=== PATIENT | male | born 1945 | race Caucasian/White ===

== ENCOUNTER 2017-07-10 03:41 | Emergency (ER) | payer MEDICARE, OTHER ==
[2017-07-10] MEDS ORDERED: LIDOCAINE 2%/EPINEPHRINE INJ 20 ML VIAL INJ ONE (04:16)
[2017-07-10] MEDS ORDERED: LIDOCAINE 1%/EPINEPHRINE INJ 20 ML VIAL INJ ONE (04:24)
--- NOTE | 2017-07-10 05:14 | RADIOLOGY REPORT (SQ) ---
EXAM DESCRIPTION: CT HEAD WITHOUT COMPLETED DATE/TIME: 07/10/2017 4:54 am REASON FOR STUDY: trauma: FELL OUT OF BED AND HIT LEFT SIDE OF HEAD COMPARISON: None. TECHNIQUE: Axial images acquired through the brain without intravenous contrast. Images reviewed wi th bone, brain and subdural windows. Images stored on PACS. All CT scanners at this facility use dose modulation, iterative reconstruction, and/or weight based d osing when appropriate to reduce radiation dose to as low as reasonably achievable (ALARA). [facility]: Dose Right [facility]: CareDose [facility]: Dose Right [facility]: Teradose 4D [facility]: [employer] RADIATION DOSE: Up-to-date CT equipment and radiation dose reduction techniques were employed. CTDIv ol: 64.6 mGy. DLP: 1292 mGy-cm. mGy. LIMITATIONS: None. FINDINGS: VENTRICLES: Normal size and contour. CEREBRUM: No masses. No hemorrhage. No midline shift. No evidence for acute infarction. Mild white matter microangiopathy. Mild cerebral volume loss. CEREBELLUM: No masses. No hemorrhage. No alteration of density. No evidence for acute infarction. EXTRAAXIAL SPACES: No fluid collections. No masses. Atherosclerosis ORBITS AND GLOBE: No intra- or extraconal masses. Normal contour of globe without masses. CALVARIUM: No fracture. PARANASAL SINUSES: Moderate ethmoid mucosal thickening and subcentimeter retention cyst -mucocele of the left frontal sinus. SOFT TISSUES: No mass or hematoma. OTHER: Moderate disc desiccation with moderate anterior osteophytes at the see 3 C4 level. Moderate C3-C4 spondylosis with likely degenerative mild malalignment as estimated on [facility] research radiographs. IMPRESSION: No acute findings. EVIDENCE OF ACUTE STROKE: NO. COMMENT: Quality ID # [id number]: Final reports with documentation of one or more dose reduction techniques (e.g., Automated exposure control, adjustment of the mA and/or kV according to patient size, use of iterative reconstruction technique) TECHNICAL DOCUMENTATION: JOB ID: [id number]- All Rights Reserved
--- NOTE | 2017-07-10 05:21 | ER Document Report ---
ED General - General Chief Complaint: Head Injury Stated Complaint: FALL,EAR/HEAD INJURY Time Seen by Provider: 07/10/17 04:13 Notes: Patient is a 71-year-old male presents with complaint of a small laceration above his left ear after falling out of bed and hitting his head on the nightstand. He is on Plavix. He does have small amount of bleeding has been continuous from the lack since hitting it. He has a mild headache. No vomiting. No loss conscious. He denies any neck pain. He denies any other injuries. TRAVEL OUTSIDE OF THE [place] IN LAST 30 DAYS: No - Related Data Allergies/Adverse Reactions: No Known Allergies Allergy (Unverified 05/09/14 11:16) Past Medical History - Social History Smoking Status: Unknown if Ever Smoked Frequency of alcohol use: None Drug Abuse: None Family History: Reviewed & Not Pertinent Patient has suicidal ideation: No Patient has homicidal ideation: No - Past Medical History Cardiac Medical History: Reports: Hx Heart Attack, Hx Hypertension Renal/ Medical History: Denies: Hx Peritoneal Dialysis Musculoskeltal Medical History: Reports Hx Arthritis Past Surgical History: Reports: Hx Cardiac Surgery - 2 stents placed in 2006, Hx Orthopedic Surgery - Bilateral Knee replacement Review of Systems - Review of Systems Notes: My Normal Review Basic REVIEW OF SYSTEMS: CONSTITUTIONAL : Denies fever, chills, or sweats. Denies recent illness. RESPIRATORY: Denies cough, cold, or chest congestion. Denies shortness of breath, difficulty breathing, or wheezing. GASTROINTESTINAL: . Denies nausea, vomiting, or diarrhea. MUSCULOSKELETAL: Denies neck or back pain or joint pain or swelling. SKIN: Denies rash or skin lesions. HEMATOLOGIC : On Plavix NEUROLOGICAL: Denies altered mental status or loss of consciousness. Mild headache. Denies weakness or paralysis or loss of use of either side. Denies problems with gait or speech. Denies sensory or motor loss. PSYCHIATRIC: Denies anxiety or stress or depression. ALL OTHER SYSTEMS REVIEWED AND NEGATIVE. Physical Exam - Vital signs Vitals: Temp Pulse Resp BP Pulse Ox 97.9 F 75 18 167/73 H 96 07/10/17 03:47 07/10/17 03:47 07/10/17 03:47 07/10/17 03:47 07/10/17 03:47 - Notes Notes: General Appearance: Well nourished, alert, cooperative, no acute distress, no obvious discomfort. Well-appearing. Vitals: reviewed, See vital signs table. Head: Small half centimeter laceration on the scalp just above the left ear. Small amount of venous oozing. Eyes: PERRL, EOMI, Conjuctiva clear Mouth: No decreasd moisture Neck: Supple, no neck tenderness, no step-offs or deformities. Lungs: No wheezing, No rales, No rhonci, No accessory muscle use, good air exchange bilaterally. Heart: Normal rate, Regular rythm, No murmur, no rub, No guarding, no rebound, no abdominal masses, no organomegaly Extremities: , good pulses in all extremities, no swelling or tenderness in the extremities, no edema. Skin: warm, dry, appropriate color, no rash Neuro: speech clear, oriented x 3, normal affect, responds appropriately to questions. Cranial nerves II through XII are intact. Distal sensation intact. Patient moves all extremities without difficulty. Course - Vital Signs Vital signs: Temp Pulse Resp BP Pulse Ox 97.9 F 75 18 167/73 H 96 07/10/17 03:47 07/10/17 03:47 07/10/17 03:47 07/10/17 03:47 07/10/17 03:47 Procedures - Laceration/Wound Repair left head Wound length (cm): 0.5 Wound's Depth, Shape: Linear Anesthetic type: 1% Lidocaine w/epi Volume Anesthetic (mLs): 1 Wound explored: Clean Irrigated w/ Saline (mLs): 20 Wound Repaired With: Dermabond Discharge - Discharge Clinical Impression: Minor head injury without loss of consciousness Qualifiers: Encounter type: initial encounter Qualified Code(s): S09.90XA - Unspecified injury of head, initial encounter Scalp laceration Qualifiers: Encounter type: initial encounter Qualified Code(s): S01.01XA - Laceration without foreign body of scalp, initial encounter Condition: Good Disposition: HOME, SELF-CARE Additional Instructions: Your CT scan today was normal. We applied glue to your cut. It is rare that these cuts get infected; however, if you have any redness or swelling to the area you should return to the ER for reevaluation. Return to the ER immediately if you have any worsening headaches, vomiting, or feel unwell as these can be signs of delayed bleeding in your head. Please follow-up with your doctor on Friday for reevaluation.
[2017-07-10] MEDS ORDERED: OXYCODONE-ACETAMINOPHEN 5-325 MG TABLET PO ONE (05:23)
[2017-07-10 05:40] VITALS: BP 164/71
== END 2017-07-10 05:48 | disposition home or self-care (01) ==
LOC: ER 03:41
PROC: 0HQ0XZZ Repair Scalp Skin, External Approach (ICD-10-PCS; principal; 2017-07-10)
DX: S09.90XA Unspecified injury of head, initial encounter (principal); S01.312A Laceration without foreign body of left ear, initial encounter; S01.01XA Laceration without foreign body of scalp, initial encounter; R51 Headache; W22.03XA Walked into furniture, initial encounter
CPT/HCPCS: 99283; 70450; 12001; J3490; A9270

== ENCOUNTER 2018-05-13 17:09 | Inpatient (IN) | payer MEDICARE, OTHER ==
[2018-05-13] MEDS ORDERED: FENTANYL CITRATE INJ/PF 100 MCG/2 ML AMPUL IV ONE (17:47)
[2018-05-13 18:08] LABS: ALANINE AMINOTRANSFERASE 23 U/L (21-72); ALBUMIN 4.5 g/dL (3.5-5.0); ALKALINE PHOSPHATASE 83 U/L (38-126); ANION GAP 11 (5-19); ASPARTATE AMINO TRANSFERASE 57 U/L (17-59); BILIRUBIN,DIRECT 0.3 mg/dL (0.0-0.4); BLOOD UREA NITROGEN 12 mg/dL (7-20); CALCIUM 9.1 mg/dL (8.4-10.2); CARBON DIOXIDE 28 mmol/L (22-30); CHLORIDE 105 mmol/L (98-107); GLUCOSE 103 mg/dL (75-110); SODIUM 143.7 mmol/L (137-145); TOTAL PROTEIN 7.4 g/dL (6.3-8.2)
[2018-05-13 18:12] LABS: ABSOLUTE EOSINOPHILS # (AUTO) 0.1 10^3/uL (0.0-0.6); ABSOLUTE LYMPHOCYTES (AUTO) 0.7 10^3/uL (0.5-4.7); ABSOLUTE MONOCYTES (AUTO) 0.3 10^3/uL (0.1-1.4); BASOPHILS % (AUTO) 0.8 % (0-2); EOSINOPHILS % (AUTO) 2.2 % (0-6); HEMATOCRIT 41.2 % (37.9-51.0); HEMOGLOBIN 13.9 g/dL (13.5-17.0); LYMPHOCYTES % (AUTO) 13.9 % (13-45); MEAN CORPUSCULAR HGB CONC 33.9 g/dL (32.0-36.0); MEAN CORPUSCULAR VOLUME 89 fl (80-97); MONOCYTES % (AUTO) 5.1 % (3-13); PLATELET COUNT 126 10^3/uL (150-450); RED BLOOD COUNT 4.65 10^6/uL (4.35-5.55); RED CELL DISTRIBUTION WIDTH 13.1 % (11.5-14.0); TOTAL CELLS COUNTED % (AUTO) 100 %; WHITE BLOOD COUNT 5.1 10^3/uL (4.0-10.5)
[2018-05-13 18:27] LABS: PARTIAL THROMBOPLASTIN TIME 35.2 SEC (23.5-35.8); PROTHROMBIN TIME 13.7 SEC (11.4-15.4)
--- NOTE | 2018-05-13 18:42 | RADIOLOGY REPORT (SQ) ---
EXAM DESCRIPTION: CHEST SINGLE VIEW COMPLETED DATE/TIME: 05/13/2018 6:29 pm REASON FOR STUDY: chest pain COMPARISON: 05/16/2014 EXAM PARAMETERS: NUMBER OF VIEWS: One view. TECHNIQUE: Single frontal radiographic view of the chest acquired. RADIATION DOSE: NA LIMITATIONS: None. FINDINGS: LUNGS AND PLEURA: No opacities, masses or pneumothorax. No pleural effusion. MEDIASTINUM AND HILAR STRUCTURES: No masses. Contour normal. HEART AND VASCULAR STRUCTURES: Heart normal in size. Normal vasculature. BONES: No acute findings. HARDWARE: None in the chest. OTHER: Bowel distention noted upper abdomen. IMPRESSION: No acute cardiopulmonary changes. COMMENT: Bowel distention noted upper abdomen. TECHNICAL DOCUMENTATION: JOB ID: [id number] [employer]- All Rights Reserved Reading location - IP/workstation name: [email or web address]
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
--- NOTE | 2018-05-13 18:48 | RADIOLOGY REPORT (SQ) ---
EXAM DESCRIPTION: CT HEAD WITHOUT COMPLETED DATE/TIME: 05/13/2018 6:35 pm REASON FOR STUDY: syncope COMPARISON: 06/20/2017 TECHNIQUE: Axial images acquired through the brain without intravenous contrast. Images reviewed wi th bone, brain and subdural windows. Images stored on PACS. All CT scanners at this facility use dose modulation, iterative reconstruction, and/or weight based d osing when appropriate to reduce radiation dose to as low as reasonably achievable (ALARA). [facility]: Dose Right [facility]: CareDose [facility]: Dose Right [facility]: Teradose 4D [facility]: [employer] RADIATION DOSE: CT Rad equipment meets quality standard of care and radiation dose reduction techniq ues were employed. CTDIvol: 53.2 mGy. DLP: 991 mGy-cm. mGy. LIMITATIONS: None. FINDINGS: VENTRICLES: Normal size and contour. CEREBRUM: No masses. No hemorrhage. No midline shift. No evidence for acute territorial infarction . Likely tiny old lacunar infarct left basal ganglia. Mild atrophic changes. CEREBELLUM: No masses. No hemorrhage. No alteration of density. No evidence for acute infarction. EXTRAAXIAL SPACES: No fluid collections. No masses. ORBITS AND GLOBE: No intra- or extraconal masses. Normal contour of globe without masses. CALVARIUM: No fracture. PARANASAL SINUSES: No fluid or mucosal thickening. SOFT TISSUES: No mass or hematoma. OTHER: No other significant finding. IMPRESSION: No hemorrhage or developing areas of infarction. EVIDENCE OF ACUTE STROKE: NO. COMMENT: Quality ID # [id number]: Final reports with documentation of one or more dose reduction techniques (e.g., Automated exposure control, adjustment of the mA and/or kV according to patient size, use of iterative reconstruction technique) TECHNICAL DOCUMENTATION: JOB ID: [id number] [employer]- All Rights Reserved Reading location - IP/workstation name: [email or web address]
[2018-05-13 19:48] LABS: APPEARANCE,URINE CLEAR; BILIRUBIN,URINE NEGATIVE (NEGATIVE); COLOR,URINE YELLOW; GLUCOSE, URINE NEGATIVE (NEGATIVE); KETONES,URINE NEGATIVE (NEGATIVE); LEUKOCYTE ESTERASE,URINE NEGATIVE (NEGATIVE); NITRITE,URINE NEGATIVE (NEGATIVE); PROTEIN,URINE NEGATIVE (NEGATIVE); URINE SPECIFIC GRAVITY 1.011; UROBILINOGEN,URINE NEGATIVE mg/dL (<2.0)
[2018-05-13 20:05] LABS: URINE AMPHETAMINES SCREEN NEGATIVE; URINE BARBITURATES SCREEN NEGATIVE; URINE BENZODIAZEPINES SCREEN NEGATIVE; URINE COCAINE SCREEN NEGATIVE; URINE MARIJUANA (THC) SCREEN NEGATIVE; URINE METHADONE SCREEN NEGATIVE; URINE PHENCYCLIDINE SCREEN NEGATIVE
[2018-05-13] MEDS ORDERED: ACETAMINOPHEN 325 MG TABLET PO PRN (20:15)
[2018-05-13 21:19] LABS: CREATINE KINASE MB 0.45 ng/mL (<4.55); TROPONIN I 0.025 ng/mL
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
[2018-05-13] MEDS: ENOXAPARIN SODIUM INJ 40 MG/0.4 ML DISP.SYRIN SUBCUT SCH (21:38)
[2018-05-13] MEDS: FAMOTIDINE 20 MG TABLET PO SCH (21:38)
[2018-05-13] MEDS ORDERED: NITROGLYCERIN 0.4 MG/TAB 25 TAB/BOTTLE SL PRN (21:41)
[2018-05-13] MEDS ORDERED: LIDOCAINE 5% (700 MG) TRANSDERMAL ADH..PATCH TOP PRN (21:41)
--- NOTE | 2018-05-13 22:00 | EKG REPORT ---
SEVERITY:- NORMAL ECG - SINUS RHYTHM : Confirmed by: Anthony Emerson 13-May-2018 21:59:14
--- NOTE | 2018-05-14 | RADIOLOGY REPORT (SQ) ---
EXAM DESCRIPTION: CT ABDOMEN PELVIS WITH IV CONTRAST, CT CHEST ANGIOGRAPHY WITHOUT THEN WITH IV CONTRAST COMPLETED DATE/TME: 05/13/2018 00:00 CLINICAL HISTORY: 72 years Male, Bowel distension Comparison: None. Technique: IV and oral contrast. 3-D reformat Coronal and sagittal reformat. This exam was performed according to our departmental dose-optimization program, which includes automated exposure control, adjustment of the mA and/or kV according to patient size and/or use of iterative reconstruction technique. [facility]: Dose Right [facility]: CareDose [facility]: Dose Right [facility]: Teradose 4D [facility]: [employer] LIMITATIONS: None Findings: Atherosclerosis, moderate coronary arterial calcification-stenting, likely benign right renal cysts measure up to 8.9 cm each, left extrarenal pelvis, small bilateral inguinal fat only hernia, normal appendix. Moderate vacuum disc desiccation. 0.3 cm degenerative L1 and T12 retrolisthesis. Minimal pericardial fluid. No pulmonary embolus. No right ventricular strain. Inferior neck, axillae, mediastinum, lungs, airway, heart, liver, gallbladder, pancreas, spleen, adrenals, renal system, gastrointestinal tract, pelvic organs, lymphatics, vasculature, and musculoskeleton appear otherwise unremarkable. Impression: No acute findings.
--- NOTE | 2018-05-14 00:41 | RADIOLOGY REPORT (SQ) ---
EXAM DESCRIPTION: MR HEAD WITHOUT IV CONTRAST COMPLETED DATE/TME: 05/13/2018 00:00 CLINICAL HISTORY: 72 years Male, syncopl episode COMPARISON: None. TECHNIQUE/LIMITATION: Conventional noncontrast MRI. FINDINGS: Mild white matter microangiopathy pattern. No mass, mass effect, or midline shift. No evidence of acute ischemia based on diffusion weighted imaging. No MRI evidence of hemorrhage. Remaining brain parenchyma and extra-axial structures appear unremarkable. IMPRESSION: Mild white matter microangiopathy.
[2018-05-14 02:59] LABS: CREATINE KINASE MB 0.5 ng/mL (<4.55); TROPONIN I 0.012 ng/mL
[2018-05-14] MEDS: OXYCODONE HCL IR 5 MG TABLET PO SCH ×4 (03:22→18:11)
[2018-05-14] MEDS: OXYCODONE-ACETAMINOPHEN 5-325 MG TABLET PO SCH ×4 (03:23→18:11)
[2018-05-14 08:51] LABS: ABSOLUTE BASOPHILS # (AUTO) 0.1 10^3/uL (0.0-0.2); ABSOLUTE EOSINOPHILS # (AUTO) 0.2 10^3/uL (0.0-0.6); ABSOLUTE LYMPHOCYTES (AUTO) 0.8 10^3/uL (0.5-4.7); ABSOLUTE MONOCYTES (AUTO) 0.3 10^3/uL (0.1-1.4); ABSOLUTE NEUT (AUTO) 3.3 10^3/uL (1.7-8.2); BASOPHILS % (AUTO) 1.3 % (0-2); EOSINOPHILS % (AUTO) 3.7 % (0-6); HEMATOCRIT 38.8 % (37.9-51.0); HEMOGLOBIN 13.2 g/dL (13.5-17.0); LYMPHOCYTES % (AUTO) 18.1 % (13-45); MEAN CORPUSCULAR VOLUME 88 fl (80-97); MONOCYTES % (AUTO) 6.8 % (3-13); PLATELET COUNT 126 10^3/uL (150-450); RED CELL DISTRIBUTION WIDTH 13.4 % (11.5-14.0); SEGMENTED NEUTROPHILS % (AUTO) 70.1 % (42-78); TOTAL CELLS COUNTED % (AUTO) 100 %; WHITE BLOOD COUNT 4.7 10^3/uL (4.0-10.5)
[2018-05-14] MEDS: CLOPIDOGREL BISULFATE 75 MG TABLET PO SCH (09:07)
[2018-05-14] MEDS: DOXAZOSIN MESYLATE 4 MG TABLET PO SCH (09:07)
[2018-05-14] MEDS: ASPIRIN 81 MG TABLET, ENT COATED PO SCH (09:10)
[2018-05-14] MEDS: CLONAZEPAM 1 MG TABLET PO SCH ×2 (09:11→21:53)
[2018-05-14] MEDS: FAMOTIDINE 20 MG TABLET PO SCH ×2 (09:12→21:53)
[2018-05-14] MEDS: ENOXAPARIN SODIUM INJ 40 MG/0.4 ML DISP.SYRIN SUBCUT SCH (09:12)
[2018-05-14] MEDS: DOCUSATE SODIUM 100 MG CAPSULE PO SCH (09:12)
[2018-05-14] MEDS: FINASTERIDE 5 MG TABLET PO SCH (09:12)
[2018-05-14] MEDS: ATORVASTATIN CALCIUM 40 MG TABLET PO SCH (09:12)
[2018-05-14] MEDS: MULTIVITAMIN TABLET PO SCH (09:12)
[2018-05-14] MEDS: METOPROLOL SUCCINATE 25 MG TAB.SR.24H PO SCH (09:12)
[2018-05-14 09:30] LABS: CREATINE KINASE MB 0.71 ng/mL (<4.55)
[2018-05-14 09:31] LABS: ALANINE AMINOTRANSFERASE 25 U/L (21-72); ALBUMIN 4.1 g/dL (3.5-5.0); ALKALINE PHOSPHATASE 63 U/L (38-126); ANION GAP 11 (5-19); ASPARTATE AMINO TRANSFERASE 29 U/L (17-59); BILIRUBIN,DIRECT 0.2 mg/dL (0.0-0.4); BILIRUBIN,TOTAL 1.5 mg/dL (0.2-1.3); BLOOD UREA NITROGEN 12 mg/dL (7-20); CARBON DIOXIDE 28 mmol/L (22-30); CHLORIDE 104 mmol/L (98-107); GLUCOSE 123 mg/dL (75-110); POTASSIUM 3.9 mmol/L (3.6-5.0); SODIUM 143.4 mmol/L (137-145); TOTAL PROTEIN 6.5 g/dL (6.3-8.2)
[2018-05-14 09:33] LABS: TROPONIN I < 0.012 ng/mL
[2018-05-14] MEDS ORDERED: (PENDING PHARMACY ID) (Fish Oil/Dha/Epa [Fish Oil 1,200 Mg Fish Oil] 1,200 MG) PO SCH (10:00)
[2018-05-14] MEDS ORDERED: MAG HYDROX/AL HYDROX/SIMETH SUSP 30 ML UDCUP ONE (11:38)
--- NOTE | 2018-05-14 12:20 | RADIOLOGY REPORT (SQ) ---
EXAM DESCRIPTION: CAROTID DOPPLER COMPLETED DATE/TIME: 05/14/2018 12:01 pm REASON FOR STUDY: syncope COMPARISON: None. TECHNIQUE: Grayscale ultrasound, Doppler velocity and spectra, and color Doppler images acquired of the extra-cranial carotid and vertebral arteries. Images stored on PACS. LIMITATIONS: None. FINDINGS: RIGHT CAROTID CCA Velocities: Within normal limits. ICA Velocities Peak systolic 0.81 m/s. End diastolic 0.26 m/s. Proximal ICA/CCA peak systolic ratio 1.1. Minimal calcific atherosclerotic plaquing is identified. LEFT CAROTID CCA Velocities: Within normal limits. ICA Velocities Peak systolic 0.93 m/s. End diastolic 0.33 m/s. Proximal ICA/CCA peak systolic ratio 1.2. Minimal calcific atherosclerotic plaquing is identified VERTEBRAL ARTERIES: Antegrade flow. Normal waveforms. SUBCLAVIAN ARTERIES: No finding. OTHER: No other significant finding. IMPRESSION: NO HEMODYNAMICALLY SIGNIFICANT STENOSIS. COMMENT: Quality ID #[id number]: Velocity criteria are extrapolated from the diameter data as defined by t he Society of Radiologists in Ultrasound Consensus Conference. Radiology 2003: 229; 340-346. TECHNICAL DOCUMENTATION: JOB ID: [id number]- All Rights Reserved Reading location - IP/workstation name: [email or web address]
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
[2018-05-14] MEDS: OMEGA-3 ACID ETHYL ESTERS 1 GM CAPSULE PO SCH (13:49)
[2018-05-15] MEDS: OXYCODONE-ACETAMINOPHEN 5-325 MG TABLET PO SCH ×5 (00:15→23:00)
[2018-05-15] MEDS: OXYCODONE HCL IR 5 MG TABLET PO SCH ×5 (00:16→23:02)
[2018-05-15 06:05] LABS: ABSOLUTE BASOPHILS # (AUTO) 0.1 10^3/uL (0.0-0.2); ABSOLUTE EOSINOPHILS # (AUTO) 0.3 10^3/uL (0.0-0.6); ABSOLUTE LYMPHOCYTES (AUTO) 1.1 10^3/uL (0.5-4.7); ABSOLUTE MONOCYTES (AUTO) 0.4 10^3/uL (0.1-1.4); ABSOLUTE NEUT (AUTO) 3.2 10^3/uL (1.7-8.2); BASOPHILS % (AUTO) 1.3 % (0-2); EOSINOPHILS % (AUTO) 5.2 % (0-6); HEMATOCRIT 37.4 % (37.9-51.0); LYMPHOCYTES % (AUTO) 21.5 % (13-45); MEAN CORPUSCULAR HEMOGLOBIN 30.4 pg (27.0-33.4); MEAN CORPUSCULAR HGB CONC 34.8 g/dL (32.0-36.0); MEAN CORPUSCULAR VOLUME 87 fl (80-97); MONOCYTES % (AUTO) 8.4 % (3-13); PLATELET COUNT 130 10^3/uL (150-450); RED BLOOD COUNT 4.28 10^6/uL (4.35-5.55); RED CELL DISTRIBUTION WIDTH 13.4 % (11.5-14.0); SEGMENTED NEUTROPHILS % (AUTO) 63.6 % (42-78); TOTAL CELLS COUNTED % (AUTO) 100 %
[2018-05-15] MEDS: ENOXAPARIN SODIUM INJ 40 MG/0.4 ML DISP.SYRIN SUBCUT SCH (11:41)
[2018-05-15] MEDS: ASPIRIN 81 MG TABLET, ENT COATED PO SCH (11:42)
[2018-05-15] MEDS: FINASTERIDE 5 MG TABLET PO SCH (11:42)
[2018-05-15] MEDS: CLOPIDOGREL BISULFATE 75 MG TABLET PO SCH (11:42)
[2018-05-15] MEDS: OMEGA-3 ACID ETHYL ESTERS 1 GM CAPSULE PO SCH (11:42)
[2018-05-15] MEDS: DOCUSATE SODIUM 100 MG CAPSULE PO SCH (11:42)
[2018-05-15] MEDS: METOPROLOL SUCCINATE 25 MG TAB.SR.24H PO SCH (11:42)
[2018-05-15] MEDS: DOXAZOSIN MESYLATE 4 MG TABLET PO SCH (11:42)
[2018-05-15] MEDS: FAMOTIDINE 20 MG TABLET PO SCH ×2 (11:42→22:58)
[2018-05-15] MEDS: ATORVASTATIN CALCIUM 40 MG TABLET PO SCH (11:43)
[2018-05-15] MEDS: CLONAZEPAM 1 MG TABLET PO SCH ×2 (11:43→22:33)
[2018-05-15] MEDS: MULTIVITAMIN TABLET PO SCH (11:43)
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
[2018-05-15] MEDS ORDERED: REGADENOSON INJ 0.4 MG/5 ML DISP.SYRIN IV ONE (15:01)
--- NOTE | 2018-05-15 17:11 | PDOC PROGRESS REPORT ---
Subjective Progress Note for:: 05/15/18 Subjective:: Patient is currently doing well Patient's denied any chest pain Denied any shortness of the breath Patient's stress test is all negative Discussed with the Maixmino and suggested patients Can go home plan noncardiac chest pain Sinus CT angiogram was done was all negative Patients need to follow with the pain management for ongoing back problems Reason For Visit: SYNCOPAL EPISODE Physical Exam Vital Signs: Temp Pulse Resp BP Pulse Ox 98.2 F 71 18 128/89 H 100 05/15/18 15:59 05/15/18 15:59 05/15/18 15:59 05/15/18 15:59 05/15/18 15:59 Intake & Output 05/14/18 05/15/18 05/16/18 06:59 06:59 06:59 Intake Total 997 300 Balance 997 300 Weight 76.2 kg General appearance: PRESENT: no acute distress, well-developed, well-nourished Head exam: PRESENT: atraumatic, normocephalic Eye exam: PRESENT: conjunctiva pink, EOMI, PERRLA. ABSENT: scleral icterus Ear exam: PRESENT: normal external ear exam Mouth exam: PRESENT: moist, tongue midline Neck exam: PRESENT: full ROM. ABSENT: carotid bruit, JVD, lymphadenopathy, thyromegaly Respiratory exam: PRESENT: clear to auscultation alejandra Cardiovascular exam: PRESENT: RRR. ABSENT: diastolic murmur, rubs, systolic murmur Pulses: PRESENT: normal dorsalis pedis pul, +2 pedal pulses bilateral Vascular exam: PRESENT: normal capillary refill GI/Abdominal exam: PRESENT: normal bowel sounds, soft. ABSENT: distended, guarding, mass, organolmegaly, rebound, tenderness Rectal exam: PRESENT: deferred Musculoskeletal exam: PRESENT: ambulatory Neurological exam: PRESENT: alert, awake, oriented to person, oriented to place , oriented to time, oriented to situation, CN II-XII grossly intact. ABSENT: motor sensory deficit Psychiatric exam: PRESENT: appropriate affect, normal mood. ABSENT: homicidal ideation, suicidal ideation Skin exam: PRESENT: dry, intact, warm. ABSENT: cyanosis, rash Results Laboratory Results: 05/15/18 05:40 05/14/18 08:34 05/15/18 05/15/18 05:40 05:40 WBC 5.0 RBC 4.28 L Hgb 13.0 L Hct 37.4 L MCV 87 MCH 30.4 MCHC 34.8 RDW 13.4 Plt Count 130 L Seg Neutrophils % 63.6 Lymphocytes % 21.5 Monocytes % 8.4 Eosinophils % 5.2 Basophils % 1.3 Absolute Neutrophils 3.2 Absolute Lymphocytes 1.1 Absolute Monocytes 0.4 Absolute Eosinophils 0.3 Absolute Basophils 0.1 Magnesium 2.0 05/14/18 05/14/18 05/14/18 02:20 02:20 08:34 Creatine Kinase 47 L 82 CK-MB (CK-2) 0.50 Troponin I 0.012 05/14/18 08:34 Creatine Kinase CK-MB (CK-2) 0.71 Troponin I < 0.012 Impressions: Head MRI 05/13/18 00:00 IMPRESSION: Mild white matter microangiopathy. Chest X-Ray 05/13/18 17:46 IMPRESSION: No acute cardiopulmonary changes. Head CT 05/13/18 18:13 IMPRESSION: No hemorrhage or developing areas of infarction. EVIDENCE OF ACUTE STROKE: NO. Carotid Doppler Study 05/14/18 00:00 IMPRESSION: NO HEMODYNAMICALLY SIGNIFICANT STENOSIS. Assessment & Plan - Diagnosis (1) Syncope and collapse Is this a current diagnosis for this admission?: Yes Plan: Patient's MRI of the head carotid Doppler stress test and all the other workup is negative most likely a vasovagal syncopal episode This with the patient and the needs to be followed with the pain management to reduce some pain medications (2) Chest pain Qualifiers: Chest pain type: unspecified Qualified Code(s): R07.9 - Chest pain, unspecified Is this a current diagnosis for this admission?: Yes Plan: Currently all resolved patients all the cardiac workup is negative (3) Coronary artery disease Qualifiers: Coronary Disease-Associated Artery/Lesion type: [place] artery Is this a current diagnosis for this admission?: Yes Plan: Follow-up with the cardiology as outpatient (4) Hypertension Qualifiers: Hypertension type: essential hypertension Qualified Code(s): I10 - Essential (primary) hypertension Is this a current diagnosis for this admission?: Yes Plan: Currently all stable (5) Hyperlipidemia Qualifiers: Hyperlipidemia type: unspecified Qualified Code(s): E78.5 - Hyperlipidemia , unspecified Is this a current diagnosis for this admission?: Yes Plan: Continues to current medications (6) Chronic back pain Qualifiers: Back pain location: low back pain Is this a current diagnosis for this admission?: Yes Plan: Patient's currently follow with the pain management (7) Gastroesophageal reflux disease Qualifiers: Esophagitis presence: without esophagitis Qualified Code(s): K21.9 - Gastro -esophageal reflux disease without esophagitis Is this a current diagnosis for this admission?: Yes Plan: Continues to Zantac - Time Time Spent with patient: 15-24 minutes Medications reviewed and adjusted accordingly: Yes Anticipated discharge: Home Within: within 24 hours - Inpatient Certification Medical Necessity: Need Close Monitoring Due to Risk of Patient Decompensation 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 Stanton patient's preferred to go home tomorrow if remains stable Follow-up pain management for further evaluations the patient off of the chest pain following the office in the ER
[2018-05-16] MEDS: OXYCODONE HCL IR 5 MG TABLET PO SCH ×2 (05:44→11:49)
[2018-05-16] MEDS: OXYCODONE-ACETAMINOPHEN 5-325 MG TABLET PO SCH ×2 (05:45→11:50)
[2018-05-16] MEDS: DOXAZOSIN MESYLATE 4 MG TABLET PO SCH (09:07)
[2018-05-16] MEDS: DOCUSATE SODIUM 100 MG CAPSULE PO SCH (09:07)
[2018-05-16] MEDS: ASPIRIN 81 MG TABLET, ENT COATED PO SCH (09:07)
[2018-05-16] MEDS: FINASTERIDE 5 MG TABLET PO SCH (09:08)
[2018-05-16] MEDS: FAMOTIDINE 20 MG TABLET PO SCH (09:08)
[2018-05-16] MEDS: OMEGA-3 ACID ETHYL ESTERS 1 GM CAPSULE PO SCH (09:08)
[2018-05-16] MEDS: MULTIVITAMIN TABLET PO SCH (09:08)
[2018-05-16] MEDS: METOPROLOL SUCCINATE 25 MG TAB.SR.24H PO SCH (09:08)
[2018-05-16] MEDS: CLOPIDOGREL BISULFATE 75 MG TABLET PO SCH (09:08)
[2018-05-16] MEDS: ATORVASTATIN CALCIUM 40 MG TABLET PO SCH (09:08)
[2018-05-16] MEDS: CLONAZEPAM 1 MG TABLET PO SCH (09:08)
[2018-05-16] MEDS: ENOXAPARIN SODIUM INJ 40 MG/0.4 ML DISP.SYRIN SUBCUT SCH (09:10)
--- NOTE | 2018-05-16 11:55 | PROGRESS NOTE E ---
Progress Note NAME: DELANO BRICEÑO : 1945 AGE: 72Y DATE: 05/15/2018 ROOM: 334 SUBJECTIVE: The patient has no further chest pain except last night the patient had Short episode of xiphoid pain last night. The etiology of this seems to have cleared. His sed rate is normal at night. He denies any shortness of breath. There is no PND, orthopnea. There is no arrhythmias. There is no palpitation or CVA tenderness. There is no leg edema. The patient has no clear cut anginal symptoms or atypical angina symptoms. There is no arrhythmia seen on the monitor. The patient underwent uneventful IV Lexiscan Cardiolite stress test this morning. OBJECTIVE: GENERAL: The patient is well built and well nourished, in no acute distress. VITAL SIGNS: He is afebrile with a temperature of 98.1 degrees Fahrenheit. Pulse is 71 beats per minute. Blood pressure is 148/66, respirations are 18 per minute. O2 sats are 100% on room air. HEENT: Head is atraumatic/normocephalic. Eyes: Pupils are equal, round, regular, reactive to light and accommodation. Extraocular movements are normal. There is no conjunctival pallor. There is no scleral icterus. ENT is negative. NECK: Supple. There is no JVD. Carotids are equal. There is no bruit. There is no lymphadenopathy. There is no goiter. Trachea is central. LUNGS: Clear to auscultation and percussion. There is no chest wall tenderness. There is no rhonchi, rales, or wheezing. HEART: S1, S2 heard. There is no S4 gallop. There is no S3 gallop. There is systolic murmur in the left sternal border and the apex. There is no rub. ABDOMEN: Soft, nontender. There is no hepatosplenomegaly. Bowel sounds are well heard. There is no tenderness or masses. EXTREMITIES: Femorals are well felt. Leg pulses are well felt. There are no femoral bruits. There is no pedal edema. There is no DVT or cellulitis. There is no calf tenderness. There is no cyanosis or clubbing. 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 PSYCHIATRIC: The patient's judgment and insight are intact. His affect is normal. LABORATORY: The patient's Lexiscan Cardiolite stress test shows no areas of reversible ischemia and there are no areas of WA. The patient's white count is 5000, the patient's hemoglobin is 13, hematocrit is 37.4 and the platelet count is 130,000. The patient's magnesium is 2.0. The patient's troponin I is less than 0.012 and CPK-MB is 0.71. His sed rate is 9. IMPRESSION: 1. SYNCOPE. This is definitely vasovagal secondary to severe pain but in view of the patient's coronary artery disease, hypertension, would recommend that the patient have a 30-day event monitor as an outpatient. 2. SHORT-LIVED CHEST PAINS IN THE XIPHOID PROCESS ? ETIOLOGY. The patient needs to take this up with his pain management. The patient's sed rate is normal and hence there does not seem to be any inflammative process in the chest. 3. CORONARY ARTERY DISEASE, HISTORY OF OLD MYOCARDIAL INFARCTION, HISTORY OF STENT IN THE RCA AND LAD. Note, IV Lexiscan Cardiolite stress test is negative for ischemia or myocardial infarction. 4. HYPERTENSION, WELL CONTROLLED. 5. HYPERLIPIDEMIA. 6. SYMPTOMS OF ENLARGED PROSTATE CONTROLLED WITH MEDICATION. 7. CHRONIC BACK PAIN. 8. SYSTOLIC MURMUR, QUESTIONABLE MITRAL REGURGITATION ? SIGNIFICANCE. RECOMMENDATIONS: All of the assessments were discussed with the patient and medications have been reviewed. The patient is aware that since he is taking Cialis which is working to help his prostate symptoms, he is educated enough to know that nitroglycerine is contraindicated. He will also tell anybody which he did tell in the ER when he came in that he is on Cialis and hence nitroglycerin was not given. The patient's tell it about his illness. His medications have been reviewed. Medical decision-making is of moderate complexity. The patient desires followup with me. He has my appointment card and my cell phone number. Discussed with Dr. Corona, admitting physician. Will sign off the case. Will follow the patient as an outpatient. DICTATING PHYSICIAN: CURTIS PRO M.D. [id number] PHY#: [id number] ID: [id number] JOB#: [id number] ACCT: [id number] cc: > MTDD
--- NOTE | 2018-05-16 14:30 | PDOC DISCHARGE SUMMARY ---
General - Admit/Disc Date/PCP Admission Date/Primary Care Provider: 05/13/18 20:53 ANTIONE MCGOWAN MD Discharge Date: 05/16/18 - Discharge Diagnosis (1) Chest pain Is this a current diagnosis for this admission?: Yes (2) Chronic back pain Is this a current diagnosis for this admission?: Yes (3) Coronary artery disease Is this a current diagnosis for this admission?: Yes (4) Gastroesophageal reflux disease Is this a current diagnosis for this admission?: Yes (5) Hyperlipidemia Is this a current diagnosis for this admission?: Yes (6) Hypertension Is this a current diagnosis for this admission?: Yes (7) Syncope and collapse Is this a current diagnosis for this admission?: Yes - Additional Information Resuscitation Status: Full Code Discharge Diet: As Tolerated Home Medications: Aspirin [Ecotrin 81 mg EC Tablet] 81 mg PO DAILY 05/13/18 Atorvastatin Calcium [Lipitor 40 mg Tablet] 40 mg PO DAILY 05/13/18 Clopidogrel Bisulfate [Plavix 75 mg Tablet] 75 mg PO DAILY 05/13/18 Doxazosin Mesylate [Cardura 4 mg Tablet] 4 mg PO DAILY 05/13/18 Doxycycline Monohydrate [Monodox] 100 mg PO DAILY 05/13/18 Finasteride [Proscar 5 mg Tablet] 5 mg PO DAILY 05/13/18 Fish Oil/Dha/Epa [Fish Oil 1,200 mg Fish Oil] 1,200 mg PO DAILY 05/13/18 Lidocaine 1 patch TOP DAILYP PRN 05/13/18 Metoprolol Succinate [Toprol Xl 25 mg Tab.sr] 25 mg PO DAILY 05/13/18 Metronidazole [Metrocream] 1 applic TOP QHS 05/13/18 Multivitamin [Tab-A-Manuel (Multiple Vitamin) Tablet] 1 tab PO DAILY 05/13/18 Oxycodone HCl/Acetaminophen [Percocet 10-325 mg Tablet] 1 tab PO Q6 05/13/18 Tadalafil [Cialis] 5 mg PO DAILY 05/13/18 Clonazepam [Klonopin 1 mg Tablet] 2 mg PO Q12 tablet 05/16/18 History of Present Illness History of Present Illness: DELANO BRICEÑO is a 72 year old male, he was admitted when he presented with chest pain associated with syncope Hospital Course Hospital Course: , He has a history of coronary artery disease, status post stent placement he presented to the emergency room for evaluation of chest pain associated with syncope spell. He was extensively evaluated, CT angiogram was done, this was negative for pulmonary embolism, he also had a CAT scan of the abdomen and pelvis, this was negative for any acute demonstrable pathology. He was admitted by Dr. Mcgowan, he was seen in consultation by cardiology, Dr. Stanton , he uses Cialis for the management of enlarged prostate gland, he also uses nitroglycerin sublingual on as-needed basis for chest pain, he was advised against this practice of using both Cialis and nitroglycerin together because of potential for life-threatening hypotension. He also had MRI of the brain which was negative, he was seen this morning, he feels well to be discharge home Physical Exam Vital Signs: Temp Pulse Resp BP Pulse Ox 97.9 F 76 12 145/67 H 97 05/16/18 11:55 05/16/18 11:55 05/16/18 11:55 05/16/18 11:55 05/16/18 11:55 Intake & Output 05/15/18 05/16/18 05/17/18 06:59 06:59 06:59 Intake Total 997 1254 355 Balance 997 1254 355 Weight 76.2 kg 75.8 kg General appearance: PRESENT: no acute distress, well-developed, well-nourished Head exam: PRESENT: atraumatic, normocephalic Eye exam: PRESENT: conjunctiva pink, EOMI, PERRLA Ear exam: PRESENT: normal external ear exam Mouth exam: PRESENT: moist, tongue midline Neck exam: PRESENT: full ROM Respiratory exam: PRESENT: clear to auscultation alejandra Cardiovascular exam: PRESENT: RRR, +S1, +S2 Pulses: PRESENT: normal dorsalis pedis pul, +2 pedal pulses bilateral Vascular exam: PRESENT: normal capillary refill GI/Abdominal exam: PRESENT: normal bowel sounds, soft Rectal exam: PRESENT: deferred Neurological exam: PRESENT: alert, awake, oriented to person, oriented to place , oriented to time, oriented to situation, CN II-XII grossly intact Psychiatric exam: PRESENT: appropriate affect, normal mood Skin exam: PRESENT: dry, intact, warm Results Laboratory Results: 05/15/18 05:40 05/14/18 08:34 05/14/18 05/14/18 05/14/18 02:20 02:20 08:34 Creatine Kinase 47 L 82 CK-MB (CK-2) 0.50 Troponin I 0.012 05/14/18 08:34 Creatine Kinase CK-MB (CK-2) 0.71 Troponin I < 0.012 Impressions: Head MRI 05/13/18 00:00 IMPRESSION: Mild white matter microangiopathy. Chest X-Ray 05/13/18 17:46 IMPRESSION: No acute cardiopulmonary changes. Head CT 05/13/18 18:13 IMPRESSION: No hemorrhage or developing areas of infarction. EVIDENCE OF ACUTE STROKE: NO. Carotid Doppler Study 05/14/18 00:00 IMPRESSION: NO HEMODYNAMICALLY SIGNIFICANT STENOSIS. Qualifiers - * PATIENT BEING DISCHARGED WITH ANY OF THE FOLLOWING DIAGNOSIS: No
[2018-05-16 14:37] VITALS: BP 135/61
--- NOTE | 2018-05-20 00:32 | DRAGON STRESS TEST REPORT ---
Intravenous Lexiscan Cardiolite stress test using single photon emmision computerized tomography. Date of procedure: 05/15/2018. Ordering Provider: Dr. Sofia Stanton. Attending Physician: Dr. Hakeem Corona patient's status: In Patient. Indication: Chest pain, in a patient with coronary artery disease, history of stents in the right coronary artery and left anterior descending artery, and syncope.. Coronary risk factors: Age, hypertension, and dyslipidemia. Resting EKG: Sinus Rhythm. Within Normal Limits. Stress EKG: No changes of ischemia. The patient had no chest pain or discomfort, and there were no arrhythmias seen. Reason for termination: Protocol. Conclusions: Normal EKG and hemodynamic response to IV Lexiscan. Nuclear data: At rest the patient was given 12.79 millicuries of technetium 99m sestamibi injected intravenously. As per protocol rest non gated SPECT images were obtained. Subsequently the patient was given intravenous Lexiscan at a dose of 0.4 mg in 5 mL intravenously, followed by flush with normal saline. Subsequently the stress dose of 36.5 millicuries of technetium 99m sestamibi was injected intravenously. As per protocol stress gated images were obtained. Nuclear interpretation: Review of images showed that all segments of the myocardium had normal perfusion at rest, and normal perfusion post stress with IV Lexiscan. All segments of the myocardium had normal motion, contraction, and thickening by gated study. T. I D. ratio was normal at 1.01. Computer read rest, and stress left ventricular ejection fraction were 56 %, and 56 %, respectively. Visually both the stress and rest ejection fractions were normal, and greater than 55%. Conclusion: 1. There is no scintigraphic evidence of Lexiscan induced myocardial ischemia. 2. There is no scintigraphic evidence of myocardial infarction/scar. Recommendations: Aggressive risk factor modification, and treating the underlying co- morbidities. MTDD
== END 2018-05-16 15:09 | disposition home or self-care (01) | DRG 312 ==
LOC: ER 17:09 → EH 20:53 → 3S 05-14 14:37
PROVIDERS: ADMIT Family Medicine; ATTEND Family Medicine
DX: R55 Syncope and collapse (principal); I25.10 Atherosclerotic heart disease of native coronary artery without angina pectoris; R01.1 Cardiac murmur, unspecified; R07.9 Chest pain, unspecified; Z95.5 Presence of coronary angioplasty implant and graft; I25.2 Old myocardial infarction; I10 Essential (primary) hypertension; N40.0 Benign prostatic hyperplasia without lower urinary tract symptoms; M54.9 Dorsalgia, unspecified; Z82.49 Family history of ischemic heart disease and other diseases of the circulatory system; G89.29 Other chronic pain; K21.9 Gastro-esophageal reflux disease without esophagitis; M19.90 Unspecified osteoarthritis, unspecified site; Z96.653 Presence of artificial knee joint, bilateral; Z79.82 Long term (current) use of aspirin; Z79.899 Other long term (current) drug therapy; E78.5 Hyperlipidemia, unspecified
CPT/HCPCS: 36415; 70450; 70551; 71045; 71275; 74177; 78452; 80053; 80307; 81001; 82550; 82553; 83735; 84484; 85025; 85610; 85652; 85730; 86430; 93005; 93010; 93017; 93880; 96374; 99285; A9500; J1650; J2785; J3010; Q9969

== ENCOUNTER 2018-06-04 02:39 | Emergency (ER) | payer MEDICARE, OTHER ==
[2018-06-04 02:47] VITALS: BP 158/79
[2018-06-04] MEDS ORDERED: LIDOCAINE 1% INJ-PF (10 MG/ML) 30 ML SDV INJ ONE (03:12)
--- NOTE | 2018-06-04 04:13 | ER Document Report ---
ED Wound - General Chief Complaint: Laceration Stated Complaint: EAR LACERATION Time Seen by Provider: 06/04/18 02:57 Mode of Arrival: Ambulatory Information source: Patient Notes: Patient reports he was having a bad dream and hit ear on corner of nightstand. Denies any loss of consciousness. Patient reports laceration to his left ear. Patient reports that he is on Plavix. Tetanus is up-to-date TRAVEL OUTSIDE OF THE [place] IN LAST 30 DAYS: No - Related Data Allergies/Adverse Reactions: No Known Allergies Allergy (Verified 06/04/18 02:40) Past Medical History - General Information source: Patient - Social History Smoking Status: Never Smoker Frequency of alcohol use: None Drug Abuse: None Family History: Reviewed & Not Pertinent - Past Medical History Cardiac Medical History: Reports: Hx Heart Attack, Hx Hypertension Renal/ Medical History: Denies: Hx Peritoneal Dialysis GI Medical History: Reports: Hx Gastroesophageal Reflux Disease Musculoskeletal Medical History: Reports Hx Arthritis Psychiatric Medical History: Denies: Hx Depression Past Surgical History: Reports: Hx Cardiac Catheterization, Hx Cardiac Surgery - 2 stents placed in 2006, Hx Coronary Stent, Hx Orthopedic Surgery - Bilateral Knee replacement Review of Systems - Review of Systems Constitutional: No symptoms reported EENT: No symptoms reported Cardiovascular: No symptoms reported Respiratory: No symptoms reported Gastrointestinal: No symptoms reported Genitourinary: No symptoms reported Male Genitourinary: No symptoms reported Musculoskeletal: No symptoms reported Skin: See HPI Hematologic/Lymphatic: No symptoms reported Neurological/Psychological: No symptoms reported Physical Exam - Vital signs Vitals: Temp Pulse Resp BP Pulse Ox 97.7 F 89 18 158/79 H 100 06/04/18 02:45 06/04/18 02:45 06/04/18 02:45 06/04/18 02:45 06/04/18 02:45 - Notes Notes: PHYSICAL EXAMINATION: GENERAL: Well-appearing, well-nourished and in no acute distress. HEAD: Atraumatic, normocephalic. EYES: Pupils equal round extraocular movements intact, conjunctiva are normal. ENT: Nares patent NECK: Normal range of motion LUNGS: No respiratory distress Musculoskeletal: Normal range of motion NEUROLOGICAL: Normal speech, normal gait. PSYCH: Normal mood, normal affect. SKIN: Warm, Dry, normal turgor, no rashes or lesions noted. 2 cm laceration to the top of the left ear. Course - Re-evaluation Re-evalutation: Laceration was repaired, see procedure note. Patient reports Tdap up-to-date. Pressure dressing was applied due to the fact that patient is on Plavix however hemostasis had been achieved by the end of the laceration repair. Patient will return for suture removal or see his primary care provider as directed. - Vital Signs Vital signs: Temp Pulse Resp BP Pulse Ox 97.7 F 89 18 158/79 H 100 06/04/18 02:45 06/04/18 02:45 06/04/18 02:45 06/04/18 02:45 06/04/18 02:45 Procedures - Laceration/Wound Repair Left ear Wound length (cm): 2 Wound's Depth, Shape: Irregular Laceration pre-procedure: Sterile PPE donned Anesthetic type: 1% Lidocaine Volume Anesthetic (mLs): 2 Wound explored: Clean Irrigated w/ Saline (mLs): 30 Wound Repaired With: Sutures Suture Size/Type: 5:0, Prolene Number of Sutures: 6 Complications: No Ears picture: 1 - 2 2 cm laceration with active bleeding Discharge - Discharge Condition: Stable Disposition: HOME, SELF-CARE Additional Instructions: Laceration Care Your laceration has been sutured to keep the skin edges aligned during healing. The time of suture removal depends on the nature and location of your cut. Please follow the care instructions the doctor has outlined for you and return for further care, according to the schedule you've been given. Keep the wound and dressing clean. Unless you were told otherwise, you may shower daily, blotting the wound dry with a clean, unused towel. At other times, If the dressing gets wet or blood soaked, remove it and blot the wound dry, then reapply a new dressing. Unless you were instructed otherwise, dressings should be changed at least daily. If any signs of infection occur (swelling, redness, increasing tenderness, red streaks, tender lumps in the armpit or groin above the laceration, or fever) , see the doctor immediately. Please return to the emergency department or your primary care provider in 4-5 days for suture removal. Please return earlier if you develop any signs of infection such as increased redness, swelling, foul-smelling drainage or fever.* Prescriptions: Cephalexin Monohydrate [Keflex 500 mg Capsule] 500 mg PO Q6H 5 Days #20 capsule Referrals: ANTIONE MCGOWAN MD [Primary Care Provider] - Follow up as needed
== END 2018-06-04 04:42 | disposition home or self-care (01) ==
LOC: ER 02:39
DX: S01.312A Laceration without foreign body of left ear, initial encounter (principal); W22.03XA Walked into furniture, initial encounter; Y93.84 Activity, sleeping; I10 Essential (primary) hypertension; I25.2 Old myocardial infarction; Z95.5 Presence of coronary angioplasty implant and graft; Z79.02 Long term (current) use of antithrombotics/antiplatelets
CPT/HCPCS: 12011; 99283; J3490